=== PATIENT | male | born 1980 | race Caucasian/White ===

== ENCOUNTER 2022-05-03 12:55 | Emergency (ER) | payer SELFPAY ==
[~2022-05-03] VITALS: Ht 170.2 cm; Wt 96.2 kg
--- NOTE | 2022-05-03 13:29 | NUR ---
Alma payne in [facility] - 05/03/22 at 1340 by [email or web address] [email or web address]. NO SHOW
[2022-05-03 13:33] VITALS: BP 133/85
--- NOTE | 2022-05-03 13:39 | NUR ---
Alma payne in ED - 05/03/22 at 1340 by [email or web address] PT AMB TO BED 4.
--- NOTE | 2022-05-03 16:18 | NUR ---
NO ANSWER WHEN CALLED BY PA GREEN
--- NOTE | 2022-05-03 16:18 | NUR ---
PATIENT LEFT WITHOUT BEING SEEN BY PA GREEN. NO FURTHER CARE PROVIDED FOR PATIENT.
--- NOTE | 2022-05-03 16:40 | NUR ---
SECOND NO ANSWER
--- NOTE | 2022-05-03 17:19 | NUR ---
3RD NO ANSWER
== END 2022-05-03 16:18 | disposition left against medical advice (07) ==
LOC: MED 12:55
DX: S61.212A Laceration without foreign body of right middle finger without damage to nail, initial encounter (principal); Z53.21 Procedure and treatment not carried out due to patient leaving prior to being seen by health care provider; W45.8XXA Other foreign body or object entering through skin, initial encounter; Y93.89 Activity, other specified; Y92.89 Other specified places as the place of occurrence of the external cause; Y99.8 Other external cause status